=== PATIENT | male | born 1995 | race Caucasian/White ===

== ENCOUNTER 2018-07-11 10:47 | Emergency (ER) | payer SELFPAY ==
[~2018-07-11] VITALS: Ht 177.8 cm; Wt 77.3 kg
[~2018-07-11 10:47] MED LIST: ACYCLOVIR800 MG PO; GARDASIL IM; NO HOME MEDS; PERCOCET 5/325M1 TAB PO; VARIVAX SC; ZOVIRAX5 % TOP; ZOVIRAX51 EX; ZOVIRAX51 TOP
[2018-07-11 12:17] LABS: IMMATURE GRANULOCYTES 0.2 % (0.0-5.0); MEAN CELL VOLUME 82.4 fL CALC (80.0-100.0); MEAN CORPUSCULAR HGB 28.4 pG CALC (26.0-32.0); MEAN CORPUSCULAR HGB CONC 34.4 g/L CALC (32.0-36.0); NEUT# 4.17 thou/uL (1.82-7.42); RED BLOOD COUNT 5.64 mill/uL (4.70-6.10); RED CELL DISTRI WIDTH 11.9 % (11.5-15.5)
[2018-07-11 12:18] LABS: HEMATOCRIT 46.5 % (39.0-50.0)
[2018-07-11 12:49] LABS: ALBUMIN 5.1 g/dL (3.2-5.0); ANION GAP 19 (6-22 (CALC)); BILIRUBIN, TOTAL 1.4 mg/dL (0.0-1.4); BUN 8 mg/dL (9-20); BUN/CREATININE RATIO 10 (12-20 (CALC)); CARBON DIOXIDE 23 mmol/l (22-30); CHLORIDE 99 mmol/l (95-108); CREATININE 0.8 mg/dL (0.7-1.3); GFR > 60 ML/MIN (>=60 (CALC)); GFR FOR AFR.AMER. > 60 ML/MIN (>=60 (CALC)); LIPASE 63 u/l (23-300); POTASSIUM 4.4 mmol/l (3.5-5.1); SGOT/AST 32 u/l (17-59); SODIUM 137 mmol/l (137-146)
[2018-07-11 12:54] LABS: ALKALINE PHOSPHATASE 85 u/l (38-126); TOTAL PROTEIN 8.6 g/dL (6.3-8.2)
[2018-07-11 13:23] VITALS: BP 156/72
== END 2018-07-11 13:36 | disposition home or self-care (01) | DRG 313 ==
LOC: ED 10:47
PROVIDERS: Family Medicine
DX: R07.9 Chest pain, unspecified (principal); J45.909 Unspecified asthma, uncomplicated